=== PATIENT | male | born 1940 | race Caucasian/White ===

== ENCOUNTER 2020-12-10 07:49 | Day surgery (SDC) | payer MEDICARE, OTHER ==
[~2020-12-10 07:49] MED LIST: Lactated Ringers 1,000 ML IV SCH; Lidocaine 1%/Sod Bicarbonate in NS 8.4% 1 ML Syringe IDERM PRN; Sodium Chloride 0.9% 10 ML Syringe FLUSH PRN
[2020-12-10] MEDS ORDERED: Propofol 200 MG/20 ML SDV ONE ×2 (08:26→08:27)
[2020-12-10] MEDS ORDERED: Lidocaine 1% 4 ML ONE (08:26)
[2020-12-10] MEDS ORDERED: Midazolam 1 MG/ML 2 ML SDV ONE (08:30)
[2020-12-10] MEDS ORDERED: Rocuronium 50 MG/5 ML Vial ONE ×2 (08:30→08:40)
[2020-12-10] MEDS ORDERED: fentaNYL 250 MCG/5 ML SDV ONE ×2 (08:30→08:40)
[2020-12-10] MEDS: Albuterol 0.083% 2.5 MG/3 ML Neb Soln NEB PRN ×2 (08:32→16:15)
--- NOTE | 2020-12-10 08:33 | PCM.PREANE ---
Preanesthetic Assessment - Procedure Proposed Procedure: lap choley - Anesthesia/Transfusion/Family Hx Anesthesia History: Prior Anesthesia Without Reaction Family History of Anesthesia Reaction: No Transfusion History: No Prior Transfusion(s) - Review of Systems General: No Symptoms Pulmonary: Cough (smokes) Cardiovascular: Dyspnea on Exertion Gastrointestinal: Diarrhea (yesterday) Neurological: No Symptoms, Other (back pain) Other: Reports: None - Physical Assessment NPO Status Date: 12/10/20 NPO Status Time: 01:00 Vital Signs: 150/69 84 89-91% 20 98 Height: 5 ft 8 in Weight: 70.3 kg ASA Class: 3 Mental Status: Alert & Oriented x3 Airway Class: Mallampati = 2 Dentition: Reports: Normal Dentition Thyro-Mental Finger Breadths: 3 Mouth Opening Finger Breadths: 3 ROM/Head Extension: Full Lungs: Normal Respiratory Effort, Crackles (course) - Allergies Allergies/Adverse Reactions: Allergies Allergy/AdvReac Type Severity Reaction Status Date / Time isosorbide AdvReac Headache Verified 12/09/20 09:39 Penicillins AdvReac Stomach Verified 12/09/20 09:39 Upset - Blood Blood Available: No - Anesthesia Plan Beta Asif: Metoprolol Med Last Dose Date: 12/10/20 Med Last Dose Time: 07:00 - Acknowledgements Anesthesia Type Planned: General Anesthesia Pt an Appropriate Candidate for the Planned Anesthesia: Yes Alternatives and Risks of Anesthesia Discussed w Pt/Guardian: Yes Pt/Guardian Understands and Agrees with Anesthesia Plan: Yes PreAnesthesia Questionnaire HEENT History: Reports: Cataract Cardiovascular History: Reports: High Cholesterol, Hypertension, [place] Respiratory History: Reports: COPD, SOB Gastrointestinal History: Reports: Gastritis Other Gastrointestinal History: dyspepsia Other Genitourinary History: atrophic testicle, prostate nodule, renal cyst, renal cell cancer Musculoskeletal History: Reports: Back Pain, Chronic Other Neuro History: spondylitis of spine Oncologic (Cancer) History: Reports: Renal Dermatologic History: Reports: Seborrheic Dermatitis - Past Surgical History HEENT Surgical History: Reports: Cataract Surgery Other Cardiovascular Surgeries/Procedures: heart cath GI Surgical History: Reports: Colonoscopy, EGD, Hernia Repair/Other Male Surgical History: Reports: Nephrectomy - SUBSTANCE USE Tobacco Use Status *Q: Current Every Day Tobacco User Tobacco Use Within Last Twelve Months: Cigarettes Second Hand Smoke Exposure: Yes Days Per Week of Alcohol Use: 0 Recreational Drug Use History: No - HOME MEDS Home Medications: Home Meds Doxycycline [Vibramycin] 100 mg PO ASDIRECTED 12/07/20 [History] Folic Acid 1 mg PO DAILY 12/07/20 [History] InFLIXimab [Remicade] 400 mg IV ASDIRECTED 12/07/20 [History] Losartan [Cozaar] 50 mg PO DAILY 12/07/20 [History] Methotrexate 15 mg PO ASDIRECTED 12/07/20 [History] Metoprolol Succinate 25 mg PO DAILY 12/07/20 [History] Multivitamin 2 tab PO DAILY 12/07/20 [History] Nitroglycerin [Nitrostat] 0.4 mg PO ASDIRECTED PRN 12/07/20 [History] Tamsulosin HCl [Flomax] 0.4 mg PO DAILY 12/07/20 [History] amLODIPine Besylate [Norvasc] 2.5 mg PO DAILY 12/07/20 [History] atorvaSTATin Calcium [Lipitor] 20 mg PO DAILY 12/07/20 [History] hydroCHLOROthiazide [Hydrochlorothiazide] 12.5 mg PO DAILY 12/07/20 [History] - CURRENT (IN HOUSE) MEDS Current Meds: Current Medications Albuterol (Albuterol 0.083% 2.5 Mg/3 Ml Neb Soln) 2.5 mg NEB Q2H PRN PRN Reason: Wheezing Stop: 12/10/20 23:00 Lactated Ringer's (Ringers, Lactated) 1,000 mls @ 125 mls/hr IV ASDIRECTED NEO Stop: 12/10/20 23:00 Lidocaine/Sodium Bicarbonate (Lidocaine 1%/Sod Bicarbonate In Ns 8.4% 1 Ml Syringe) 0.25 ml IDERM ONETIME PRN PRN Reason: Prior to IV Start Stop: 12/10/20 18:00 Sodium Chloride (Sodium Chloride 0.9% 10 Ml Syringe) 10 ml FLUSH ASDIRECTED PRN PRN Reason: Keep Vein Open Stop: 12/10/20 18:00 Discontinued Medications Bupivacaine HCl/Epinephrine Bitart (Bupivacaine 0.5%/Epinephrine 1:200,000 50 Ml Mdv) Confirm Administered Dose 50 ml .ROUTE .STK-MED ONE Stop: 12/10/20 08:25
[2020-12-10] MEDS ORDERED: Succinylcholine/Sod PF 100 MG/5 ML SYRINGE IV ONE (10:14)
[2020-12-10] MEDS ORDERED: Ondansetron 4 MG/2 ML SDV ONE (10:32)
[2020-12-10] MEDS ORDERED: Dexamethasone 4 MG/ML 5 ML MDV ONE (10:32)
[2020-12-10] MEDS ORDERED: Clindamycin Phosphate in D5W 900 MG/50 ML Premix Bag IV ONE (10:34)
[2020-12-10] MEDS: Bupivacaine 0.5%/EPINEPHrine 1:200,000 50 ML MDV ONE ×2 (10:36→10:53)
[2020-12-10] MEDS ORDERED: Lactated Ringers 1,000 ML ONE (10:53)
[2020-12-10] MEDS ORDERED: ePHEDrine 50 MG/ML SDV ONE (10:54)
[2020-12-10] MEDS ORDERED: Ketamine 500 mg/10 ML MDV ONE (11:02)
[2020-12-10] MEDS ORDERED: Albuterol 6.7 GM Inhaler INH ONE (11:39)
[2020-12-10] MEDS ORDERED: Ondansetron 4 MG/2 ML SDV IVPUSH PRN (12:01)
[2020-12-10] MEDS ORDERED: HYDROmorphone 0.5 MG/0.5 ML Syringe IVPUSH PRN (12:01)
[2020-12-10] MEDS ORDERED: fentaNYL 100 MCG/2 ML SDV IVPUSH PRN (12:01)
--- NOTE | 2020-12-10 12:01 | PCM.POSTAN ---
POST ANESTHESIA ASSESSMENT - MENTAL STATUS Mental Status: Other (drowsy) - VITAL SIGNS Vital Signs: Last Vital Signs Temp 36.7 C 12/10/20 08:15 Pulse 84 12/10/20 08:15 Resp 20 12/10/20 08:15 BP Pulse Ox 91 L 12/10/20 08:32 - RESPIRATORY Respiratory Status: Respiratory Rate WNL, Airway Patent, O2 Saturation Stable, Supplemental Oxygen - CARDIOVASCULAR CV Status: Pulse Rate WNL, Blood Pressure Stable - GASTROINTESTINAL GI Status: No Symptoms - PAIN Pain Score: 0 - POST OP HYDRATION Hydration Status: Adequate & Stable
--- NOTE | 2020-12-10 14:29 | PCM48HPAN ---
Post Anesthesia Note - EVALUATION WITHIN 48HRS OF ANESTHETIC Vital Signs in Normal Range: Yes Patient Participated in Evaluation: Yes Respiratory Function Stable: Yes Airway Patent: Yes (weaning off oxygen. may need to go to floor recovery as sats were low preop) Cardiovascular Function Stable: Yes Hydration Status Stable: Yes Pain Control Satisfactory: Yes (denies pain.) Nausea and Vomiting Control Satisfactory: Yes Mental Status Recovered: Yes Vital Signs: Last Vital Signs Temp 98.7 F 12/10/20 13:20 Pulse 84 12/10/20 13:20 Resp 12 12/10/20 13:20 BP 144/72 H 12/10/20 13:20 Pulse Ox 95 12/10/20 13:20
--- NOTE | 2020-12-12 15:13 | OR ---
DATE OF OPERATION: 12/10/2020 SURGEON: Eyad Merino MD PREOPERATIVE DIAGNOSIS: Symptomatic cholelithiasis. POSTOPERATIVE DIAGNOSIS: Symptomatic cholelithiasis. OPERATION PERFORMED: Laparoscopic cholecystectomy. ESTIMATED BLOOD LOSS: Minimal. ANESTHESIA: General endotracheal plus local anesthetic consisting of 1% lidocaine. COMPLICATIONS: None. INDICATION AND CONSENT: The patient is a 80-year-old male who has been having right upper quadrant pain for an extended period of time. The patient's symptoms persisted and continued to get worse. He presented to my clinic. Initially, I saw him about a year ago and recommended cholecystectomy. The patient did not want to proceed with the procedure, and when he did, there was COVID pandemic. Therefore, he postponed the procedure until recently when he came back to my clinic, and we planned to proceed. The patient was preoped appropriately, and surgery was scheduled today. The patient was met once again. Any questions were answered. The patient understood the risks, benefits, and alternatives, and we have decided to proceed with the procedure. Informed consent had already been signed in the clinic. DESCRIPTION OF PROCEDURE: The patient was taken to the operating room and placed in the supine position. SCDs were placed. General endotracheal anesthesia was induced and preop antibiotics consisting of clindamycin provided. Then, the abdomen was clipped of hair and prepped and draped in the usual sterile fashion. The patient has had prior upper left lower quadrant hernia repair with mesh. Therefore, we began the procedure by injecting local anesthetic in the right upper quadrant and then making a small incision at this site in the right subcostal area and placing a Veress needle. The abdomen was insufflated to 15 mmHg. Then, a 5 mm trocar was introduced under direct visualization of the scope in the abdomen. There were no signs of injury due to Veress needle insertion or trocar insertion. Scope was introduced to be able to visualize the periumbilical area to make sure that there were no severe adhesions or mesh. We were able to visualize that area. We saw that the patient had a recurrent left lower quadrant hernia containing omentum. There were also moderate adhesions of omental appendages to the hernia as well. There were no adhesions superior to the hernia. This area provided a viable area to place another 12 mm trocar. Therefore, about 4 cm superior to the umbilicus, local anesthetic was infiltrated. An incision was made, and a 12 mm trocar was placed under direct visualization of the scope. Two additional 5 mm trocars were placed, one in the infra-xiphoid area, and another one in the right lateral subcostal. We placed the patient in the reverse Trendelenburg and focused on the gallbladder. The gallbladder was elevated cranially, and using cautery as well as graspers, the triangle of Calot was dissected. A critical angle of safety was obtained, and clips were placed in the cystic duct as well as the cystic artery, 3 clips in total, and these structures were transected, leaving 2 clips in situ. Then, the gallbladder was dissected off the gallbladder fossa with cautery and placed in the EndoCatch bag. EBL was minimal. There was no spillage of gallbladder contents within the abdomen. Then, the gallbladder was removed through the supraumbilical incision. The abdomen was surveyed again. There were no injuries that were noted, and then, incision at the supraumbilical area, after palpation, it was not clear that there was mesh at this site. Therefore, to be safe, we closed this area with 0 Prolene stitch at the fascial level, and then skin at all 4 incisions was closed with 4-0 Monocryl at the skin level. Dermabond was applied. Once this was done, the gallbladder was examined and opened. There were numerous stones. The patient was awoken and taken to the PACU for recovery. The patient will be allowed to return home with weightlifting restriction. Pain medications and stool softeners were prescribed. The patient will come to clinic in 2 weeks for followup. IDRIS /[id number]
== END 2020-12-10 20:40 | disposition home or self-care (01) ==
LOC: JD.SDS 07:49 → JD.MS 15:49 → JD.SDS 20:40
PROVIDERS: ATTEND Surgery
DX: K80.10 Calculus of gallbladder with chronic cholecystitis without obstruction (principal); J44.9 Chronic obstructive pulmonary disease, unspecified; I25.10 Atherosclerotic heart disease of native coronary artery without angina pectoris; I10 Essential (primary) hypertension; F17.210 Nicotine dependence, cigarettes, uncomplicated; E78.00 Pure hypercholesterolemia, unspecified; I25.2 Old myocardial infarction; Z98.890 Other specified postprocedural states; Z79.899 Other long term (current) drug therapy; Z79.82 Long term (current) use of aspirin; Z88.0 Allergy status to penicillin; Z88.8 Allergy status to other drugs, medicaments and biological substances
CPT/HCPCS: 47562; 88304; 94640; A9270; J0330; J1100; J2370; J2405; J2704; J2710; J3010; J3490; J7120; 00790; 99100; J2250

== ENCOUNTER 2021-10-10 07:11 | Day surgery (SDC) | payer MEDICARE, OTHER ==
[~2021-10-10 07:11] MED LIST changes: +Sodium Chloride 0.9% 10 ML Syringe FLUSH SCH
[2021-10-10] MEDS ORDERED: Albuterol 0.083% 2.5 MG/3 ML Neb Soln NEB SCH (07:32)
[2021-10-10] MEDS ORDERED: Propofol 200 MG/20 ML SDV ONE ×2 (08:04→09:23)
[2021-10-10] MEDS ORDERED: Lidocaine 1% 4 ML ONE (08:05)
== END 2021-10-10 10:50 | disposition home or self-care (01) ==
LOC: JD.SDS 07:11
PROVIDERS: ATTEND Surgery
DX: Z12.11 Encounter for screening for malignant neoplasm of colon (principal); D12.2 Benign neoplasm of ascending colon; D12.5 Benign neoplasm of sigmoid colon; K52.89 Other specified noninfective gastroenteritis and colitis; K64.8 Other hemorrhoids; I25.2 Old myocardial infarction; F17.210 Nicotine dependence, cigarettes, uncomplicated; C61 Malignant neoplasm of prostate; I25.10 Atherosclerotic heart disease of native coronary artery without angina pectoris; I10 Essential (primary) hypertension; J44.9 Chronic obstructive pulmonary disease, unspecified; E78.00 Pure hypercholesterolemia, unspecified; Z98.890 Other specified postprocedural states; Z88.0 Allergy status to penicillin; Z88.8 Allergy status to other drugs, medicaments and biological substances; Z88.6 Allergy status to analgesic agent; Z95.1 Presence of aortocoronary bypass graft; Z79.82 Long term (current) use of aspirin; Z79.899 Other long term (current) drug therapy
CPT/HCPCS: 45380; J2704; J7120; 00812; 88305

== ENCOUNTER 2022-10-14 14:26 | Inpatient (IN) | payer MEDICARE, OTHER ==
[2022-10-14] MEDS ORDERED: methylPREDNISolone Sodium Succinate 125 MG/2 ML SDV IVPUSH ONE (14:42)
[2022-10-14 15:19] LABS: HEMATOCRIT 40.9 % (40.1-51.0); HEMOGLOBIN 12.7 gm/dl (13.7-17.5); MEAN CORPUSCULAR HEMOGLOBIN 30.4 pg (25.7-32.2); MEAN CORPUSCULAR HGB CONC 31.1 g/dl (32.2-35.5); MEAN CORPUSCULAR VOLUME 97.8 fl (79.0-92.2); MEAN PLATELET VOLUME 10.7 fl (9.4-12.3); PLATELET COUNT,PLT 168 K/mm3 (163-337); RED BLOOD CELL COUNT 4.18 M/mm3 (4.63-6.08); WHITE BLOOD CELL COUNT,WBC 7.71 K/mm3 (4.23-9.07)
[2022-10-14 15:32] LABS: INR 0.99; PROTHROMBIN TIME 10.6 SECONDS (9.7-12.0)
[2022-10-14] MEDS ORDERED: Furosemide 40 MG/4 ML VIAL IVPUSH ONE (15:35)
[2022-10-14 15:45] LABS: BAND PERCENT MAN 0 % (0-10); BASOPHILS PERCENT MAN 0 (0.2-1.2); EOSINOPHILS PERCENT MAN 1 % (0.8-7.0); LYMPHOCYTES % ATYPICAL MANUAL 0 %; LYMPHOCYTES PERCENT MAN 13 % (20-40); MONOCYTES PERCENT MAN 10 % (2-10); PLATELET COUNT ESTIMATE ADEQUATE
[2022-10-14 15:46] LABS: A/G RATIO 0.8 (1-2); ALBUMIN 2.5 g/dl (3.4-5.0); ANION GAP 10.6 (5-15); BILIRUBIN TOTAL 0.6 mg/dL (0.2-1.0); BUN/CREATININE RATIO 16.7 (14-18); CALCIUM 8.2 mg/dL (8.5-10.1); CREATININE 2.1 mg/dL (0.7-1.3); EST CRCL DRUG DOSING (CG) 26.1 mL/min; POTASSIUM,K 3.6 mEq/L (3.5-5.1); PROTEIN TOTAL,TP 5.6 g/dl (6.4-8.2)
[2022-10-14 15:56] LABS: CORONAVIRUS COVID-19 NAA NEGATIVE (NEGATIVE); INFLUENZA A NAA NEGATIVE (NEGATIVE); RESPIRATORY SYNCYTIAL VIR NAA NEGATIVE (NEGATIVE)
[2022-10-14 16:29] LABS: APPEARANCE,URINE CLEAR (Clear); BILIRUBIN,URINE NEGATIVE (Negative); COLOR,URINE YELLOW (Yellow); GLUCOSE,URINE NEGATIVE (Negative); KETONES,URINE NEGATIVE (Negative); LEUKOCYTE ESTERASE,URINE NEGATIVE (Negative); NITRITE,URINE NEGATIVE (Negative); OCCULT BLOOD,URINE 1+ (Negative); PROTEIN,URINE 3+ (Negative); UROBILINOGEN,URINE 0.2 (0.2-1.0)
[2022-10-14 16:45] LABS: BACTERIA,URINE FEW /hpf (FEW); SQUAMOUS EPITHELIAL CELLS,UR 0-5 /hpf (0-5); WBC,URINE 0-5 /hpf (0-5)
[2022-10-14 16:46] LABS: AMORPHOUS SEDIMENT,URINE FEW /hpf (NOT SEEN); MUCUS,URINE FEW /hpf (FEW)
[2022-10-14] MEDS ORDERED: oxyCODONE 5 MG Tab PO PRN (17:16)
[2022-10-14] MEDS ORDERED: Acetaminophen 325 MG Tab PO PRN (17:16)
[2022-10-14] MEDS: Heparin Sodium 5,000 Units/ML Vial SUBCUT SCH (23:38)
[2022-10-15] MEDS: Heparin Sodium 5,000 Units/ML Vial SUBCUT SCH ×3 (02:05→18:59)
[2022-10-15 06:11] LABS: BASOPHILS ABSOLUTE AUTO 0.01 K/mm3 (0.01-0.08); BASOPHILS PERCENT AUTO 0.2 % (0.1-1.2); EOSINOPHILS PERCENT AUTO 0 (0.8-7.0); HEMATOCRIT 40.2 % (40.1-51.0); HEMOGLOBIN 12.4 gm/dl (13.7-17.5); IMMATURE GRAN ABSOLUTE AUTO 0.13 K/mm3 (0.00-0.10); IMMATURE GRAN PERCENT AUTO 2.3 % (<=1.0); LYMPHOCYTES ABSOLUTE AUTO 0.75 K/mm3 (1.32-3.57); LYMPHOCYTES PERCENT AUTO 13.4 % (21.8-53.1); MEAN CORPUSCULAR HEMOGLOBIN 29.7 pg (25.7-32.2); MEAN CORPUSCULAR HGB CONC 30.8 g/dl (32.2-35.5); MEAN CORPUSCULAR VOLUME 96.4 fl (79.0-92.2); MEAN PLATELET VOLUME 11.3 fl (9.4-12.3); MONOCYTES ABSOLUTE AUTO 0.22 K/mm3 (0.30-0.82); MONOCYTES PERCENT AUTO 3.9 % (5.3-12.2); NEUTROPHILS PERCENT AUTO 80.2 % (34.0-67.9); PLATELET COUNT,PLT 125 K/mm3 (163-337); RED BLOOD CELL COUNT 4.17 M/mm3 (4.63-6.08); WHITE BLOOD CELL COUNT,WBC 5.61 K/mm3 (4.23-9.07)
[2022-10-15 06:31] LABS: A/G RATIO 0.8 (1-2); ALBUMIN 2.3 g/dl (3.4-5.0); ANION GAP 9.5 (5-15); BILIRUBIN TOTAL 0.6 mg/dL (0.2-1.0); BUN/CREATININE RATIO 18.2 (14-18); CALCIUM 8.3 mg/dL (8.5-10.1); CREATININE 2.2 mg/dL (0.7-1.3); EST CRCL DRUG DOSING (CG) 25.55 mL/min; POTASSIUM,K 3.5 mEq/L (3.5-5.1); PROTEIN TOTAL,TP 5.1 g/dl (6.4-8.2)
[2022-10-15] MEDS ORDERED: Furosemide 40 MG/4 ML VIAL IVPUSH SCH (09:00)
[2022-10-15] MEDS: Tamsulosin 0.4 MG Cap.ER PO SCH (09:23)
[2022-10-15] MEDS: Multivitamins with Minerals/Folic Acid/Lutein/Zeaxanth Tab PO SCH (09:23)
[2022-10-15] MEDS: Losartan 100 MG Tab PO SCH (09:23)
[2022-10-15] MEDS: Metoprolol Succinate 25 MG Tab.ER PO SCH (09:24)
[2022-10-15] MEDS: atorvaSTATin 20 MG Tab PO SCH (09:24)
[2022-10-15] MEDS: Aspirin 81 MG Tab.Chew PO SCH (09:24)
[2022-10-15] MEDS ORDERED: predniSONE 20 MG Tab PO SCH (11:00)
[2022-10-15] MEDS ORDERED: Albuterol 0.083% 2.5 MG/3 ML Neb Soln NEB PRN (11:58)
[2022-10-15] MEDS: predniSONE 20 MG Tab PO SCH ×2 (14:43→21:14)
[2022-10-15] MEDS: Albuterol/Ipratropium 3.0-0.5 MG/3 ML Neb Soln NEB SCH ×2 (15:21→20:47)
[2022-10-15] MEDS: ABIRATERONE ACETATE 250 MG PO SCH (21:17)
[2022-10-16] MEDS: Heparin Sodium 5,000 Units/ML Vial SUBCUT SCH ×3 (02:01→17:18)
[2022-10-16] MEDS: Albuterol/Ipratropium 3.0-0.5 MG/3 ML Neb Soln NEB SCH ×4 (05:43→20:16)
[2022-10-16 06:11] LABS: BASOPHILS ABSOLUTE AUTO 0.01 K/mm3 (0.01-0.08); BASOPHILS PERCENT AUTO 0.1 % (0.1-1.2); EOSINOPHILS PERCENT AUTO 0 (0.8-7.0); HEMATOCRIT 38.7 % (40.1-51.0); IMMATURE GRAN ABSOLUTE AUTO 0.12 K/mm3 (0.00-0.10); IMMATURE GRAN PERCENT AUTO 1.4 % (<=1.0); LYMPHOCYTES ABSOLUTE AUTO 0.55 K/mm3 (1.32-3.57); LYMPHOCYTES PERCENT AUTO 6.6 % (21.8-53.1); MEAN CORPUSCULAR HEMOGLOBIN 29.9 pg (25.7-32.2); MEAN CORPUSCULAR VOLUME 96.5 fl (79.0-92.2); MEAN PLATELET VOLUME 11.5 fl (9.4-12.3); MONOCYTES ABSOLUTE AUTO 0.33 K/mm3 (0.30-0.82); NEUTROPHILS ABSOLUTE AUTO 7.32 K/mm3 (1.78-5.38); NEUTROPHILS PERCENT AUTO 87.9 % (34.0-67.9); PLATELET COUNT,PLT 165 K/mm3 (163-337); RED BLOOD CELL COUNT 4.01 M/mm3 (4.63-6.08); WHITE BLOOD CELL COUNT,WBC 8.33 K/mm3 (4.23-9.07)
[2022-10-16 06:34] LABS: A/G RATIO 0.8 (1-2); ALBUMIN 2.3 g/dl (3.4-5.0); ANION GAP 12.5 (5-15); BILIRUBIN TOTAL 0.5 mg/dL (0.2-1.0); BUN/CREATININE RATIO 19.6 (14-18); CALCIUM 7.9 mg/dL (8.5-10.1); CREATININE 2.6 mg/dL (0.7-1.3); EST CRCL DRUG DOSING (CG) 21.07 mL/min; POTASSIUM,K 3.5 mEq/L (3.5-5.1); PROTEIN TOTAL,TP 5.2 g/dl (6.4-8.2)
[2022-10-16] MEDS: atorvaSTATin 20 MG Tab PO SCH (08:53)
[2022-10-16] MEDS: Bumetanide 1 MG/4 ML MDV IVPUSH SCH (08:53)
[2022-10-16] MEDS: Metoprolol Succinate 25 MG Tab.ER PO SCH (08:53)
[2022-10-16] MEDS: Aspirin 81 MG Tab.Chew PO SCH (08:53)
[2022-10-16] MEDS: Multivitamins with Minerals/Folic Acid/Lutein/Zeaxanth Tab PO SCH (08:53)
[2022-10-16] MEDS: Tamsulosin 0.4 MG Cap.ER PO SCH (08:53)
[2022-10-16] MEDS: predniSONE 20 MG Tab PO SCH (08:54)
[2022-10-16] MEDS: Nicotine 14 MG/24 Hr Patch TRDERM SCH (08:54)
[2022-10-16] MEDS ORDERED: Calcitriol 0.25 MCG Cap PO SCH (09:00)
[2022-10-16] MEDS: Losartan 100 MG Tab PO SCH (09:02)
[2022-10-16] MEDS: amLODIPine 10 MG Tab PO SCH ×2 (19:47→23:01)
[2022-10-16] MEDS: predniSONE 5 MG Tab PO SCH ×2 (19:47→23:03)
[2022-10-16] MEDS ORDERED: Benzocaine/Cetylpyridinium/Menthol Lozenge MUCMEM PRN (22:48)
[2022-10-16] MEDS: ABIRATERONE ACETATE 250 MG PO SCH (23:08)
[2022-10-17] MEDS: Heparin Sodium 5,000 Units/ML Vial SUBCUT SCH ×2 (02:36→10:30)
[2022-10-17] MEDS: Albuterol/Ipratropium 3.0-0.5 MG/3 ML Neb Soln NEB SCH ×2 (06:27→09:24)
[2022-10-17 07:19] LABS: ANION GAP 7.4 (5-15); BUN/CREATININE RATIO 24.3 (14-18); CALCIUM 8.3 mg/dL (8.5-10.1); CREATININE 2.1 mg/dL (0.7-1.3); EST CRCL DRUG DOSING (CG) 26.08 mL/min; POTASSIUM,K 3.4 mEq/L (3.5-5.1)
[2022-10-17 08:18] LABS: BASOPHILS ABSOLUTE AUTO 0.02 K/mm3 (0.01-0.08); BASOPHILS PERCENT AUTO 0.2 % (0.1-1.2); EOSINOPHILS ABSOLUTE AUTO 0.01 K/mm3 (0.04-0.54); EOSINOPHILS PERCENT AUTO 0.1 (0.8-7.0); HEMATOCRIT 42.3 % (40.1-51.0); HEMOGLOBIN 13.3 gm/dl (13.7-17.5); IMMATURE GRAN ABSOLUTE AUTO 0.13 K/mm3 (0.00-0.10); IMMATURE GRAN PERCENT AUTO 1.1 % (<=1.0); LYMPHOCYTES PERCENT AUTO 10.2 % (21.8-53.1); MEAN CORPUSCULAR HEMOGLOBIN 30.2 pg (25.7-32.2); MEAN CORPUSCULAR HGB CONC 31.4 g/dl (32.2-35.5); MEAN CORPUSCULAR VOLUME 96.1 fl (79.0-92.2); MEAN PLATELET VOLUME 10.1 fl (9.4-12.3); MONOCYTES ABSOLUTE AUTO 0.86 K/mm3 (0.30-0.82); MONOCYTES PERCENT AUTO 7.3 % (5.3-12.2); NEUTROPHILS ABSOLUTE AUTO 9.53 K/mm3 (1.78-5.38); NEUTROPHILS PERCENT AUTO 81.1 % (34.0-67.9); PLATELET COUNT,PLT 170 K/mm3 (163-337); WHITE BLOOD CELL COUNT,WBC 11.75 K/mm3 (4.23-9.07)
[2022-10-17] MEDS: Bumetanide 1 MG/4 ML MDV IVPUSH SCH (08:58)
[2022-10-17] MEDS: atorvaSTATin 20 MG Tab PO SCH (08:58)
[2022-10-17] MEDS: Aspirin 81 MG Tab.Chew PO SCH (08:59)
[2022-10-17] MEDS: Nicotine 14 MG/24 Hr Patch TRDERM SCH (08:59)
[2022-10-17] MEDS: Metoprolol Succinate 25 MG Tab.ER PO SCH (08:59)
[2022-10-17] MEDS: Multivitamins with Minerals/Folic Acid/Lutein/Zeaxanth Tab PO SCH (08:59)
[2022-10-17] MEDS: Tamsulosin 0.4 MG Cap.ER PO SCH (08:59)
[2022-10-17] MEDS: predniSONE 5 MG Tab PO SCH (08:59)
[2022-10-17] MEDS ORDERED: Calcitriol 0.25 MCG Cap PO SCH (09:00)
[2022-10-17] MEDS ORDERED: Potassium Chloride 20 MEQ Tab.ER PO ONE (09:17)
[2022-10-17] MEDS ORDERED: guaiFENesin 600 MG Tab.ER PO ONE (09:18)
[2022-10-17] MEDS ORDERED: guaiFENesin 600 MG Tab.ER PO SCH (21:00)
[2022-10-18 10:29] LABS: PROTEIN,URINE CONCENTRATION 232.4 mg/dL (0-11.8)
[2022-10-18 11:32] LABS: PROTEIN,URINE 24HR 3602.2 mg/24hr (<149)
[2022-10-22 12:47] LABS: M-SPIKE, % Not Observed % (Not Observed); PROTEIN,TOTAL,URINE 212.8 mg/dL (Not Estab.)
== END 2022-10-17 15:54 | disposition home or self-care (01) | DRG 293 ==
LOC: JD.ED 14:26 → JD.MS 17:16
PROVIDERS: ADMIT Internal Medicine; ATTEND Internal Medicine
DX: J44.1 Chronic obstructive pulmonary disease with (acute) exacerbation (principal); I11.0 Hypertensive heart disease with heart failure; I13.0 Hypertensive heart and chronic kidney disease with heart failure and stage 1 through stage 4 chronic kidney disease, or unspecified chronic kidney disease; I50.9 Heart failure, unspecified; N18.9 Chronic kidney disease, unspecified; J43.9 Emphysema, unspecified; M06.9 Rheumatoid arthritis, unspecified; C61 Malignant neoplasm of prostate; E78.00 Pure hypercholesterolemia, unspecified; I25.2 Old myocardial infarction; I25.10 Atherosclerotic heart disease of native coronary artery without angina pectoris; R53.1 Weakness; F17.210 Nicotine dependence, cigarettes, uncomplicated; Z90.5 Acquired absence of kidney; Z88.0 Allergy status to penicillin; Z88.6 Allergy status to analgesic agent; Z98.890 Other specified postprocedural states; Z20.822 Contact with and (suspected) exposure to COVID-19; Z68.22 Body mass index [BMI] 22.0-22.9, adult; Z79.01 Long term (current) use of anticoagulants; Z79.82 Long term (current) use of aspirin; Z79.899 Other long term (current) drug therapy; Z86.16 Personal history of COVID-19
CPT/HCPCS: 0241U; 36415; 71045; 80048; 80053; 81001; 82550; 83735; 83880; 84484; 85007; 85025; 85027; 85610; 85730; 86140; 87040; 93005; 93307; 94640; 94667; 94668; 94761; 96374; 96375; 97116; 97161; 99285; 93010; A9270-GY; J1644; J1940; J2930; J3490; J7512; J7620-GY

== ENCOUNTER 2022-10-23 16:07 | Emergency (ER) | payer MEDICARE, OTHER ==
[2022-10-23 17:18] LABS: BASOPHILS ABSOLUTE AUTO 0.05 K/mm3 (0.01-0.08); BASOPHILS PERCENT AUTO 0.5 % (0.1-1.2); EOSINOPHILS ABSOLUTE AUTO 0.06 K/mm3 (0.04-0.54); EOSINOPHILS PERCENT AUTO 0.7 (0.8-7.0); HEMATOCRIT 41.2 % (40.1-51.0); HEMOGLOBIN 12.6 gm/dl (13.7-17.5); IMMATURE GRAN ABSOLUTE AUTO 0.55 K/mm3 (0.00-0.10); LYMPHOCYTES ABSOLUTE AUTO 0.85 K/mm3 (1.32-3.57); LYMPHOCYTES PERCENT AUTO 9.3 % (21.8-53.1); MEAN CORPUSCULAR HEMOGLOBIN 30.3 pg (25.7-32.2); MEAN CORPUSCULAR HGB CONC 30.6 g/dl (32.2-35.5); MONOCYTES ABSOLUTE AUTO 0.72 K/mm3 (0.30-0.82); MONOCYTES PERCENT AUTO 7.9 % (5.3-12.2); NEUTROPHILS ABSOLUTE AUTO 6.89 K/mm3 (1.78-5.38); NEUTROPHILS PERCENT AUTO 75.6 % (34.0-67.9); PLATELET COUNT,PLT 160 K/mm3 (163-337); RED BLOOD CELL COUNT 4.16 M/mm3 (4.63-6.08); WHITE BLOOD CELL COUNT,WBC 9.12 K/mm3 (4.23-9.07)
[2022-10-23 17:33] LABS: INR 0.95; PROTHROMBIN TIME 10.2 SECONDS (9.7-12.0)
[2022-10-23 17:39] LABS: A/G RATIO 0.8 (1-2); ALBUMIN 2.6 g/dl (3.4-5.0); ANION GAP 4.3 (5-15); BILIRUBIN TOTAL 0.6 mg/dL (0.2-1.0); BUN/CREATININE RATIO 18.3 (14-18); CALCIUM 8.5 mg/dL (8.5-10.1); CREATININE 2.3 mg/dL (0.7-1.3); EST CRCL DRUG DOSING (CG) 23.34 mL/min; POTASSIUM,K 4.3 mEq/L (3.5-5.1); PROTEIN TOTAL,TP 5.8 g/dl (6.4-8.2)
[2022-10-23 17:59] LABS: SLIDE REVIEW ABNORMAL SMEAR
== END 2022-10-23 18:39 | disposition home or self-care (01) ==
LOC: JD.ED 16:07
DX: I13.0 Hypertensive heart and chronic kidney disease with heart failure and stage 1 through stage 4 chronic kidney disease, or unspecified chronic kidney disease (principal); N18.9 Chronic kidney disease, unspecified; I50.9 Heart failure, unspecified; I25.10 Atherosclerotic heart disease of native coronary artery without angina pectoris; E78.00 Pure hypercholesterolemia, unspecified; I25.2 Old myocardial infarction; J43.9 Emphysema, unspecified; Z86.16 Personal history of COVID-19; Z79.899 Other long term (current) drug therapy; Z88.4 Allergy status to anesthetic agent; Z88.0 Allergy status to penicillin
CPT/HCPCS: 36415; 74176; 74176-26; 80053; 83690; 84484; 85025; 85610; 93005; 93010; 99284; 99285

== ENCOUNTER 2023-09-13 12:54 | Emergency (ER) | payer MEDICARE, OTHER ==
[2023-09-13] MEDS: Sodium Chloride 0.9% 10 ML Syringe FLUSH PRN (13:26)
[2023-09-13] MEDS: Tranexamic Acid 1,000 MG/10 ML Vial IV ONE (13:34)
[2023-09-13 13:39] LABS: BASOPHILS PERCENT AUTO 0.6 % (0.0-1.0); EOSINOPHILS ABSOLUTE AUTO 0.2 K/mm3 (0.0-0.4); EOSINOPHILS PERCENT AUTO 2.4 % (0.0-6.0); HEMATOCRIT 29.4 % (42.0-52.0); HEMOGLOBIN 8.9 gm/dl (14.0-18.0); IMMATURE GRAN ABSOLUTE AUTO 0.04 K/mm3 (0.00-0.05); IMMATURE GRAN PERCENT AUTO 0.6 % (0.0-0.4); LYMPHOCYTES ABSOLUTE AUTO 1.6 K/mm3 (1.0-4.8); LYMPHOCYTES PERCENT AUTO 24.1 % (24.0-44.0); MEAN CORPUSCULAR HEMOGLOBIN 27.9 pg (28.0-32.0); MEAN CORPUSCULAR HGB CONC 30.3 g/dl (32.0-36.0); MEAN CORPUSCULAR VOLUME 92.2 fl (83.0-99.0); MEAN PLATELET VOLUME 9.8 fl (9.4-12.4); MONOCYTES ABSOLUTE AUTO 0.6 K/mm3 (0.0-0.8); MONOCYTES PERCENT AUTO 8.5 % (0.0-8.0); NEUTROPHILS ABSOLUTE AUTO 4.3 K/mm3 (1.8-7.7); NEUTROPHILS PERCENT AUTO 63.8 % (41.0-71.0); RED BLOOD CELL COUNT 3.19 M/mm3 (4.52-5.90); WHITE BLOOD CELL COUNT,WBC 6.68 K/mm3 (3.9-11.3)
[2023-09-13 13:41] LABS: PLATELET COUNT,PLT 140 K/mm3 (150-400)
[2023-09-13 13:57] LABS: INR 0.99; PROTHROMBIN TIME 10.6 SECONDS (9.7-12.0)
[2023-09-13 13:59] LABS: PTT,PARTIAL THROMBOPLSTIN TIME 27.9 SECONDS (21.7-31.4)
[2023-09-13 14:04] LABS: A/G RATIO 0.7 (1-2); ALBUMIN 2.8 g/dl (3.4-5.0); BILIRUBIN TOTAL 0.5 mg/dL (0.2-1.0); CALCIUM 8.8 mg/dL (8.5-10.1); EST CRCL DRUG DOSING (CG) 15.12 mL/min
[2023-09-13] MEDS: HYDROmorphone 0.5 MG/0.5 ML Syringe IVPUSH ONE (14:29)
[2023-09-13 20:11] LABS: HEMOGLOBIN 8.5 gm/dl (14.0-18.0)
[2023-09-13] MEDS: Oxymetazoline 0.05% Nasal Spray 30 ML Bottle NAS ONE (23:37)
[2023-09-14 06:04] LABS: BASOPHILS PERCENT AUTO 0.7 % (0.0-1.0); EOSINOPHILS ABSOLUTE AUTO 0.2 K/mm3 (0.0-0.4); EOSINOPHILS PERCENT AUTO 2.8 % (0.0-6.0); HEMATOCRIT 26.8 % (42.0-52.0); HEMOGLOBIN 8.1 gm/dl (14.0-18.0); IMMATURE GRAN ABSOLUTE AUTO 0.04 K/mm3 (0.00-0.05); IMMATURE GRAN PERCENT AUTO 0.7 % (0.0-0.4); LYMPHOCYTES ABSOLUTE AUTO 1.4 K/mm3 (1.0-4.8); LYMPHOCYTES PERCENT AUTO 26.7 % (24.0-44.0); MEAN CORPUSCULAR HGB CONC 30.2 g/dl (32.0-36.0); MEAN CORPUSCULAR VOLUME 92.7 fl (83.0-99.0); MEAN PLATELET VOLUME 9.7 fl (9.4-12.4); MONOCYTES ABSOLUTE AUTO 0.6 K/mm3 (0.0-0.8); MONOCYTES PERCENT AUTO 10.4 % (0.0-8.0); NEUTROPHILS ABSOLUTE AUTO 3.2 K/mm3 (1.8-7.7); NEUTROPHILS PERCENT AUTO 58.7 % (41.0-71.0); PLATELET COUNT,PLT 127 K/mm3 (150-400); RED BLOOD CELL COUNT 2.89 M/mm3 (4.52-5.90); WHITE BLOOD CELL COUNT,WBC 5.39 K/mm3 (3.9-11.3)
[2023-09-14 08:18] LABS: BASOPHILS PERCENT AUTO 0.8 % (0.0-1.0); EOSINOPHILS ABSOLUTE AUTO 0.2 K/mm3 (0.0-0.4); EOSINOPHILS PERCENT AUTO 2.9 % (0.0-6.0); HEMATOCRIT 26.3 % (42.0-52.0); IMMATURE GRAN ABSOLUTE AUTO 0.05 K/mm3 (0.00-0.05); LYMPHOCYTES ABSOLUTE AUTO 1.5 K/mm3 (1.0-4.8); MEAN CORPUSCULAR HEMOGLOBIN 27.9 pg (28.0-32.0); MEAN CORPUSCULAR HGB CONC 30.4 g/dl (32.0-36.0); MEAN CORPUSCULAR VOLUME 91.6 fl (83.0-99.0); MONOCYTES ABSOLUTE AUTO 0.5 K/mm3 (0.0-0.8); MONOCYTES PERCENT AUTO 9.5 % (0.0-8.0); NEUTROPHILS PERCENT AUTO 56.8 % (41.0-71.0); PLATELET COUNT,PLT 125 K/mm3 (150-400); RED BLOOD CELL COUNT 2.87 M/mm3 (4.52-5.90); WHITE BLOOD CELL COUNT,WBC 5.18 K/mm3 (3.9-11.3)
== END 2023-09-14 10:27 | disposition home or self-care (01) ==
LOC: JD.ED 12:54
DX: R04.0 Epistaxis (principal); J44.9 Chronic obstructive pulmonary disease, unspecified; D64.89 Other specified anemias; I25.10 Atherosclerotic heart disease of native coronary artery without angina pectoris; I13.0 Hypertensive heart and chronic kidney disease with heart failure and stage 1 through stage 4 chronic kidney disease, or unspecified chronic kidney disease; I50.9 Heart failure, unspecified; N18.9 Chronic kidney disease, unspecified; I25.2 Old myocardial infarction; M19.90 Unspecified osteoarthritis, unspecified site; E78.00 Pure hypercholesterolemia, unspecified; Z86.16 Personal history of COVID-19; Z79.82 Long term (current) use of aspirin; Z79.899 Other long term (current) drug therapy; Z88.0 Allergy status to penicillin; Z88.8 Allergy status to other drugs, medicaments and biological substances
CPT/HCPCS: 30903; 36415; 80053; 85014; 85018; 85025; 85610; 85730; 96374; 96375; 99283; A9270; C9046; J1170; J3490; 30901; 99284

== ENCOUNTER 2023-11-13 14:00 | Emergency (ER) | payer MEDICARE, OTHER ==
[2023-11-13 15:16] LABS: BASOPHILS PERCENT AUTO 0.5 % (0.0-1.0); EOSINOPHILS ABSOLUTE AUTO 0.1 K/mm3 (0.0-0.4); EOSINOPHILS PERCENT AUTO 0.9 % (0.0-6.0); HEMATOCRIT 25.3 % (42.0-52.0); HEMOGLOBIN 7.6 gm/dl (14.0-18.0); IMMATURE GRAN ABSOLUTE AUTO 0.09 K/mm3 (0.00-0.05); IMMATURE GRAN PERCENT AUTO 1.6 % (0.0-0.4); LYMPHOCYTES ABSOLUTE AUTO 0.9 K/mm3 (1.0-4.8); LYMPHOCYTES PERCENT AUTO 15.4 % (24.0-44.0); MEAN CORPUSCULAR HEMOGLOBIN 27.9 pg (28.0-32.0); MEAN PLATELET VOLUME 10.3 fl (9.4-12.4); MONOCYTES ABSOLUTE AUTO 0.5 K/mm3 (0.0-0.8); MONOCYTES PERCENT AUTO 8.8 % (0.0-8.0); NEUTROPHILS ABSOLUTE AUTO 4.2 K/mm3 (1.8-7.7); NEUTROPHILS PERCENT AUTO 72.8 % (41.0-71.0); PLATELET COUNT,PLT 186 K/mm3 (150-400); RED BLOOD CELL COUNT 2.72 M/mm3 (4.52-5.90); WHITE BLOOD CELL COUNT,WBC 5.71 K/mm3 (3.9-11.3)
[2023-11-13 15:41] LABS: A/G RATIO 0.6 (1-2); ALBUMIN 2.6 g/dl (3.4-5.0); ANION GAP 8.9 (5-15); BILIRUBIN TOTAL 0.4 mg/dL (0.2-1.0); BUN/CREATININE RATIO 12.8 (14-18); CALCIUM 8.9 mg/dL (8.5-10.1); CREATININE 3.6 mg/dL (0.7-1.3); EST CRCL DRUG DOSING (CG) 12.6 mL/min; POTASSIUM,K 2.9 mEq/L (3.5-5.1)
[2023-11-13 16:39] LABS: C-REACTIVE PROTEIN 1.13 mg/dL (<0.30)
[2023-11-13] MEDS: Levofloxacin 500 MG Tab PO ONE (17:25)
[2023-11-13] MEDS: methylPREDNISolone Sodium Succinate 40 MG/1 ML SDV IVPUSH ONE (17:26)
[2023-11-13] MEDS: Potassium Chloride 20 MEQ Tab.ER PO ONE (17:26)
[2023-11-13] MEDS: Sodium Chloride 0.9% 100 ML IV SCH (19:04)
== END 2023-11-13 19:40 ==
LOC: JD.ED 14:00
DX: I13.0 Hypertensive heart and chronic kidney disease with heart failure and stage 1 through stage 4 chronic kidney disease, or unspecified chronic kidney disease (principal); N18.9 Chronic kidney disease, unspecified; I50.9 Heart failure, unspecified; D63.1 Anemia in chronic kidney disease; J96.21 Acute and chronic respiratory failure with hypoxia; N17.9 Acute kidney failure, unspecified; J44.1 Chronic obstructive pulmonary disease with (acute) exacerbation; K62.5 Hemorrhage of anus and rectum; I25.10 Atherosclerotic heart disease of native coronary artery without angina pectoris; Z86.16 Personal history of COVID-19; Z79.899 Other long term (current) drug therapy; Z88.0 Allergy status to penicillin; Z88.8 Allergy status to other drugs, medicaments and biological substances
CPT/HCPCS: 36415; 36430; 71046; 80053; 83880; 84484; 85025; 86140; 86850; 86900; 86901; 86922; 93005; 96374; 99285; A9270; J2919; J3490; P9016